=== PATIENT | male | born 1995 | race Caucasian/White ===

== ENCOUNTER 2021-02-03 14:22 | Emergency (ER) | payer OTHER ==
[2021-02-03 15:11] VITALS: BP 117/65; PULSE 76; RESP 16; TEMP 98.3
--- NOTE | 2021-02-03 15:56 | ED ---
General Adult HPI - General Chief complaint: Extremity Injury, Lower Stated complaint: [facility] Abd Injury/ Groin Pain Time Seen by Provider: 02/03/21 15:48 Source: patient, RN notes reviewed Mode of arrival: ambulatory Limitations: no limitations - History of Present Illness Initial comments: 25-year-old male presents emergency Department chief complaint of groin injury. Patient states that he had a heart box come back and strike him in his groin. Primarily on the left side. He states he'll discomfort but noticed some bruising, swelling. Patient was referred evaluation as his happened at work. He states he works for [id number]. Patient states the pain and swelling on the symptoms have greatly improved today. Patient has no significant - Related Data Allergies Allergy/AdvReac Type Severity Reaction Status Date / Time No Known Allergies Allergy Verified 02/03/21 15:09 Review of Systems ROS Statement: Those systems with pertinent positive or pertinent negative responses have been documented in the HPI. ROS Other: All systems not noted in ROS Statement are negative. Past Medical History Past Medical History: No Reported History History of Any Multi-Drug Resistant Organisms: None Reported Past Surgical History: No Surgical Hx Reported Past Psychological History: No Psychological Hx Reported Smoking Status: Current every day smoker Past Alcohol Use History: Occasional Past Drug Use History: None Reported General Exam Limitations: no limitations General appearance: alert, in no apparent distress Head exam: Present: atraumatic, normocephalic, normal inspection Respiratory exam: Present: normal lung sounds bilaterally. Absent: respiratory distress, wheezes, rales, rhonchi, stridor Cardiovascular Exam: Present: regular rate, normal rhythm, normal heart sounds. Absent: systolic murmur, diastolic murmur, rubs, gallop, clicks GI/Abdominal exam: Present: soft, normal bowel sounds. Absent: distended, tenderness, guarding, rebound, rigid exam: Present: other (tenderness of upper left groin). Absent: normal inspection (mild ecchymotic area of the scrotum,a tenderness) Course Vital Signs 02/03/21 15:09 Temperature 98.3 F Pulse Rate 76 Respiratory 16 Rate Blood Pressure 117/65 O2 Sat by Pulse 98 Oximetry Medical Decision Making - Medical Decision Making patient has no scrotal injury no tenderness. Patient discharged in stable condition patient has mild contusion. Disposition Clinical Impression: Contusion of groin, left Disposition: HOME SELF-CARE Condition: Stable Instructions (If sedation given, give patient instructions): Contusion in Adults (ED) Additional Instructions: Please return to the Emergency Department if symptoms worsen or any other concerns. Is patient prescribed a controlled substance at d/c from ED?: No Referrals: None,Stated [Primary Care Provider] - 1-2 days Time of Disposition: 15:55
== END 2021-02-03 16:08 | disposition home or self-care (01) ==
LOC: EC 14:22
DX: S30.1XXA Contusion of abdominal wall, initial encounter (principal); F17.200 Nicotine dependence, unspecified, uncomplicated; W22.8XXA Striking against or struck by other objects, initial encounter
CPT/HCPCS: 99283